=== PATIENT | female | born 1995 | race Caucasian/White ===

== ENCOUNTER 2016-07-05 12:15 | Emergency (ER) | payer MEDICAID ==
[2016-07-05 12:53] VITALS: BP 113/71
[2016-07-05 16:55] LABS: Basophils % (Auto) 0.3 % (0.0-1.8); Hematocrit 39.2 % (30.3-42.9); Hemoglobin 12.6 gm/dl (10.1-14.3); Mean Corpuscular HGB Conc 32 % (30-34); Mean Corpuscular Hemoglobin 26 pg (28-32); Mean Corpuscular Volume 82 fl (79-97); Platelet Count 259 K/mm3 (140-440); Red Blood Count 4.79 M/mm3 (3.65-5.03); Red Cell Distribution Width 12.8 % (13.2-15.2); White Blood Count 10.3 K/mm3 (4.5-11.0)
[2016-07-05] MEDS ORDERED: NACL 0.9% 1000 ML 1,000 ML IV ONE (17:09)
[2016-07-05] MEDS ORDERED: TYLENOL PO ONE (17:09)
[2016-07-05 17:10] LABS: Bilirubin,Urine NEG (Negative); Blood,Urine NEG (Negative); Ketones,Urine NEG (Negative); Leukocyte Esterase,Urine NEG (Negative); Mucus,Urine 3+ /HPF; Nitrite,Urine NEG (Negative); Urobilinogen,Urine < 2.0 mg/dL (<2.0)
--- NOTE | 2016-07-05 17:10 | Emergency Department Report ---
HPI - General Chief Complaint: Nausea/Vomiting/Diarrhea Time Seen by Provider: 07/05/16 16:29 - HPI HPI: The patient is a 21-year-old female presents for evaluation of fever and ill feeling. The patient reports approximately 24 hours of fever, chills, non- productive cough, nauea, a few episodes of nonbilious, nonbloody emesis, 2-3 episodes of loose watery stools, and mild to moderate epigastric abdominal pain , cramping in quality, radiating to the back. She shares that one of her children experienced fever, vomiting, and cold-like symptoms during the past 2 days as well. The patient denies chest pain, dyspnea, hemoptysis, neck pain or stiffness, dysuria, vaginal discharge, blood in the stool, dark tarry stool, flank pain, inability to pass flatus. ED Past Medical Hx - Past Medical History Hx Hypertension: No Hx Congestive Heart Failure: No Hx Diabetes: No Hx Deep Vein Thrombosis: No Hx Renal Disease: No Hx Sickle Cell Disease: No Hx Seizures: No Hx Asthma: Yes Hx COPD: No Hx HIV: No - Surgical History Past Surgical History?: No - Social History Smoking Status: Never Smoker Substance Use Type: None - Medications Home Medications: Home Medications Medication Instructions Recorded Confirmed Last Taken Type Azithromycin [Zithromax Z-ANATOLIY] 250 mg PO QDAY #6 tablet 07/05/16 Unknown Rx HYDROcodone/APAP 5-325 [[place] 1 each PO Q6HR PRN #15 tablet 07/05/16 Unknown Rx 5/325] Ibuprofen [Motrin] 400 mg PO Q6H #30 tablet 07/05/16 Unknown Rx Ondansetron [Zofran TAB] 4 mg PO Q8HR PRN #20 tablet 07/05/16 Unknown Rx ED Review of Systems ROS: Stated complaint: DIARRHEA AND VOMITING Other details as noted in HPI Constitutional: denies: fever ENT: denies: throat or neck pain Respiratory: denies: cough, shortness of breath Cardiovascular: denies: chest pain Endocrine: denies unexplained weight loss or gain Gastrointestinal: reports abdominal pain, nausea Genitourinary: denies: dysuria Musculoskeletal: denies: leg swelling Skin: denies: rash Neurological: denies: headache Hematological/Lymphatic: denies: easy bleeding or easy bruising Psych: denies sadness or hopelessness Physical Exam - Physical Exam Vital Signs: Vital Signs 07/05/16 12:50 Temperature 100.3 F H Pulse Rate 118 H Respiratory 20 Rate Blood Pressure 113/71 O2 Sat by Pulse 100 Oximetry Physical Exam: General: well-nourished, well-developed, no acute distress Head: Normocephalic, atraumatic Eyes: normal sclera ENT: Mucous membranes are pink and moist Neck: trachea midline, neck supple, No neck stiffness, no cervical adenopathy Respiratory: Breath sounds equal bilaterally, no wheezing, rales, or rhonchi Cardio: S1 and S2 present, no murmurs, rubs, gallops, capillary refill is brisk Abdomen: Normoactive bowel sounds, soft abdomen, bilateral lower abd tenderness to palpation present, no rigidity, no guarding or rebound tenderness Musc: No pitting edema Skin: No rash Neuro: no facial drooping, normal speech Psych: Normal affect ED Course Vital Signs 07/05/16 12:50 Temperature 100.3 F H Pulse Rate 118 H Respiratory 20 Rate Blood Pressure 113/71 O2 Sat by Pulse 100 Oximetry ED Medical Decision Making - Lab Data Result diagrams: 07/05/16 16:41 07/05/16 16:41 - Medical Decision Making The patient was seen and examined by myself. The patient is placed on a architecture consultant and continuous pulse ox. On initial evaluation, the patient was found to be in no distress. Evaluation orders are placed. The patient is given a tablet of Tylenol for her fever and pain. She is given a 1 L normal saline fluid bolus for treatment of dehydration. She declined nausea medicine at this time. Lab results revealed elevated urine specific gravity, consistent with exam findings of dehydration, and otherwise labs were non-concerning including WBC, hemoglobin, hematocrit, electrolytes, renal function, LFTs, lipase, and neg preg test. The patient was reevaluated and reported that her symptoms were markedly improved. On reexamination she is found to have decrease in heart rate to 102, and resolution of abdominal tenderness. The patient is stable for discharge with outpatient follow-up. The patient is given follow-up and return instructions. The patient expressed understanding and agreed with the plan. The patient is discharged in stable condition. Critical care attestation.: If time is entered above; I have spent that time in minutes in the direct care of this critically ill patient, excluding procedure time. ED Disposition Clinical Impression: Dehydration, Abdominal pain, acute, epigastric, Acute viral syndrome Fever Qualifiers: Fever type: unspecified Qualified Code(s): R50.9 - Fever, unspecified Disposition: DISCHARGED TO HOME OR SELFCARE Is pt being admited?: No Does the pt Need Aspirin: No Condition: Stable Instructions: Gastroenteritis (ED), Acute Abdominal Pain (ED), Viral Syndrome ( ED), Abdominal Pain (ED), Dehydration (ED) Additional Instructions: Drink lots of water and poweraide or gatorade to stay hydrated. Take the motrin every 6 hours to keep your fever down. Take the zofran to stop urine nausea and vomiting. Take the [place] as needed for pain control. Prescriptions: Ibuprofen [Motrin] 400 mg PO Q6H #30 tablet HYDROcodone/APAP 5-325 [[place] 5/325] 1 each PO Q6HR PRN #15 tablet PRN Reason: Pain Azithromycin [Zithromax Z-ANATOLIY] 250 mg PO QDAY #6 tablet Ondansetron [Zofran TAB] 4 mg PO Q8HR PRN #20 tablet PRN Reason: Nausea And Vomiting Referrals: PRIMARY CARE,MD [Primary Care Provider] - 3-5 Days [facility] [Outside] - 3-5 Days [facility] [Outside] - 3-5 Days Time of Disposition: 17:36 Print Language: CROATIAN
[2016-07-05 17:14] LABS: Alanine Aminotransferase 55 units/L (7-56); Albumin 3.6 g/dL (3.9-5); Albumin/Globulin Ratio 1.2 %; Alkaline Phosphatase 103 units/L (35-129); Anion Gap 19 mmol/L; BUN/Creatinine Ratio 11.25; Bilirubin,Total 0.2 mg/dL (0.1-1.2); Blood Urea Nitrogen 9 mg/dL (7-17); Calcium 8.7 mg/dL (8.4-10.2); Carbon Dioxide 20 mmol/L (22-30); Chloride 99.5 mmol/L (98-107); Glucose 99 mg/dL (65-100); Lipase 25 units/L (13-60); Potassium 3.9 mmol/L (3.6-5.0); Sodium 135 mmol/L (137-145); Total Protein 6.7 g/dL (6.3-8.2)
== END 2016-07-05 18:49 | disposition home or self-care (01) ==
LOC: ED 12:15
DX: E86.0 Dehydration (principal); R10.13 Epigastric pain; B34.9 Viral infection, unspecified; R50.9 Fever, unspecified; J45.909 Unspecified asthma, uncomplicated
CPT/HCPCS: 36415; 80053; 81001; 83690; 84703; 85025; 96360; 99284; J7030

== ENCOUNTER 2017-06-04 15:07 | Emergency (ER) | payer MEDICAID ==
[2017-06-04 15:51] LABS: Basophils % (Auto) 0.3 % (0.0-1.8); Eosinophils % (Auto) 0.1 % (0.0-4.3); Hematocrit 44.2 % (30.3-42.9); Hemoglobin 14.1 gm/dl (10.1-14.3); Mean Corpuscular HGB Conc 32 % (30-34); Mean Corpuscular Volume 81 fl (79-97); Platelet Count 303 K/mm3 (140-440); Red Blood Count 5.43 M/mm3 (3.65-5.03); Red Cell Distribution Width 13.5 % (13.2-15.2); White Blood Count 16.5 K/mm3 (4.5-11.0)
[2017-06-04 15:52] LABS: Mean Corpuscular Hemoglobin 26 pg (28-32)
[2017-06-04 16:11] LABS: Anion Gap 21 mmol/L; BUN/Creatinine Ratio 21; Blood Urea Nitrogen 17 mg/dL (7-17); Calcium 8.7 mg/dL (8.4-10.2); Carbon Dioxide 22 mmol/L (22-30); Chloride 101.3 mmol/L (98-107); Glucose 117 mg/dL (65-100); Potassium 3.6 mmol/L (3.6-5.0); Sodium 141 mmol/L (137-145)
[2017-06-04 16:19] LABS: Bilirubin,Urine NEG (Negative); Blood,Urine NEG (Negative); Ketones,Urine NEG (Negative); Leukocyte Esterase,Urine NEG (Negative); Mucus,Urine 3+ /HPF; Nitrite,Urine NEG (Negative); Urobilinogen,Urine < 2.0 mg/dL (<2.0)
[2017-06-04] MEDS ORDERED: NACL 0.9% 1000 ML 1,000 ML IV ONE ×2 (22:24)
[2017-06-04] MEDS ORDERED: ZOFRAN IV ONE (22:24)
[2017-06-04] MEDS ORDERED: PEPCID IV ONE (22:33)
--- NOTE | 2017-06-04 22:41 | Emergency Department Report ---
HPI - General Chief Complaint: Nausea/Vomiting/Diarrhea Time Seen by Provider: 06/04/17 22:23 - HPI HPI: Room 2 The patient is a 21-year-old female presenting with a chief complaint of nausea vomiting and diarrhea. The patient states there were 3 or 4 people in her home had nausea vomiting and diarrhea. The patient states last night at approximately 20:00 she developed nausea vomiting and diarrhea in addition to burning midepigastric abdominal discomfort and low back pain. She denies fever but admits to chills. The patient states her last meal before the onset of her symptoms included chicken soup from a box Location: Gastrointestinal system Duration: Constant since 20:00 Quality: Burning Severity: Moderate Modifying factors: [see above] Context: [see above] Mode of transportation: [not driving] ED Past Medical Hx - Past Medical History Previous Medical History?: Yes Hx Asthma: Yes - Surgical History Past Surgical History?: No - Family History Family history: no significant - Social History Smoking Status: Never Smoker Substance Use Type: None (denies illicit drug use) - Medications Home Medications: Home Medications Medication Instructions Recorded Confirmed Last Taken Type Azithromycin [Zithromax Z-ANATOLIY] 250 mg PO QDAY #6 tablet 07/05/16 Unknown Rx HYDROcodone/APAP 5-325 [[place] 1 each PO Q6HR PRN #15 tablet 07/05/16 Unknown Rx 5/325] Ibuprofen [Motrin] 400 mg PO Q6H #30 tablet 07/05/16 Unknown Rx Ondansetron [Zofran TAB] 4 mg PO Q8HR PRN #20 tablet 07/05/16 Unknown Rx Famotidine [Pepcid] 20 mg PO BID #20 tablet 06/04/17 Unknown Rx Promethazine [Phenergan TAB] 25 mg PO Q6HR PRN #20 tab 06/04/17 Unknown Rx Promethazine [Phenergan] 25 mg [place] Q6HR PRN #5 supp.rect 06/04/17 Unknown Rx traMADol [Ultram] 50 mg PO Q6HR PRN #20 tablet 06/04/17 Unknown Rx ED Review of Systems ROS: Stated complaint: NVD Other details as noted in HPI Constitutional: chills. denies: fever Eyes: denies: eye pain ENT: denies: throat pain Cardiovascular: denies: chest pain Gastrointestinal: abdominal pain, nausea, vomiting, diarrhea Genitourinary: denies: dysuria Musculoskeletal: back pain Neurological: denies: headache Physical Exam - Physical Exam Vital Signs: Vital Signs 06/04/17 06/04/17 15:12 16:23 Temperature 98.2 F 98.9 F Pulse Rate 114 H 107 H Respiratory 18 18 Rate Blood Pressure 89/51 Blood Pressure 104/68 [Right] O2 Sat by Pulse 100 Oximetry Physical Exam: GENERAL: The patient is well-developed well-nourished female lying on stretcher not appearing to be in acute distress. [] HEENT: Normocephalic. Atraumatic. Extraocular motions are intact. NECK: Supple. No meningitic signs are noted. There is no adenopathy noted. CHEST/LUNGS: Clear to auscultation. There is no respiratory distress noted. HEART/CARDIOVASCULAR: Regular. There is no tachycardia. There is no gallop rub or murmur. ABDOMEN: Abdomen is soft, with only trace discomfort to palpation in the midepigastric region. Patient has normal bowel sounds. There is no abdominal distention. SKIN: There is no rash. There is no edema. There is no diaphoresis. NEURO: The patient is awake, alert, and oriented. The patient is cooperative. The patient has normal speech MUSCULOSKELETAL: There is no CVA tenderness. There is no evidence of acute injury. ED Course Vital Signs 06/04/17 06/04/17 15:12 16:23 Temperature 98.2 F 98.9 F Pulse Rate 114 H 107 H Respiratory 18 18 Rate Blood Pressure 89/51 Blood Pressure 104/68 [Right] O2 Sat by Pulse 100 Oximetry - Reevaluation(s) Reevaluation #1: 06/04/17 23:44 Patient states she feels better. Patient asymptomatic. Patient tolerating po ED Medical Decision Making - Lab Data Result diagrams: 06/04/17 15:42 06/04/17 15:38 Laboratory Tests 06/04/17 06/04/17 06/04/17 15:38 15:42 16:00 WBC 16.5 H RBC 5.43 H Hgb 14.1 Hct 44.2 H MCV 81 MCH 26 L MCHC 32 RDW 13.5 Plt Count 303 Lymph % (Auto) 6.1 L [place] % (Auto) 4.2 Eos % (Auto) 0.1 Baso % (Auto) 0.3 Lymph # 1.0 L [place] # 0.7 Eos # 0.0 Baso # 0.0 Seg Neutrophils % 89.3 H Seg Neutrophils # 14.7 H Sodium 141 Potassium 3.6 Chloride 101.3 Carbon Dioxide 22 Anion Gap 21 BUN 17 Creatinine 0.8 Estimated GFR > 60 BUN/Creatinine Ratio 21 Glucose 117 H Calcium 8.7 Urine Color Yellow Urine Turbidity Clear Urine pH 5.0 Ur Specific [place] 1.035 H Urine Protein 30 mg/dl Urine Glucose (UA) Neg Urine Ketones Neg Urine Blood Neg Urine Nitrite Neg Ur Reducing Substances Not Reportable Urine Bilirubin Neg Urine Ictotest Not Reportable Urine Urobilinogen < 2.0 Ur Leukocyte Esterase Neg Urine WBC (Auto) 1.0 Urine RBC (Auto) 3.0 U Epithel Cells (Auto) 1.0 Urine Mucus 3+ Urine HCG, Qual Negative Laboratory Tests 06/04/17 06/04/17 06/04/17 15:38 15:42 16:00 WBC 16.5 H RBC 5.43 H Hgb 14.1 Hct 44.2 H MCV 81 MCH 26 L MCHC 32 RDW 13.5 Plt Count 303 Lymph % (Auto) 6.1 L [place] % (Auto) 4.2 Eos % (Auto) 0.1 Baso % (Auto) 0.3 Lymph # 1.0 L [place] # 0.7 Eos # 0.0 Baso # 0.0 Seg Neutrophils % 89.3 H Seg Neutrophils # 14.7 H Sodium 141 Potassium 3.6 Chloride 101.3 Carbon Dioxide 22 Anion Gap 21 BUN 17 Creatinine 0.8 Estimated GFR > 60 BUN/Creatinine Ratio 21 Glucose 117 H Calcium 8.7 Total Bilirubin Direct Bilirubin Indirect Bilirubin AST ALT Alkaline Phosphatase Total Protein Albumin Albumin/Globulin Ratio Lipase Urine Color Yellow Urine Turbidity Clear Urine pH 5.0 Ur Specific [place] 1.035 H Urine Protein 30 mg/dl Urine Glucose (UA) Neg Urine Ketones Neg Urine Blood Neg Urine Nitrite Neg Ur Reducing Substances Not Reportable Urine Bilirubin Neg Urine Ictotest Not Reportable Urine Urobilinogen < 2.0 Ur Leukocyte Esterase Neg Urine WBC (Auto) 1.0 Urine RBC (Auto) 3.0 U Epithel Cells (Auto) 1.0 Urine Mucus 3+ Urine HCG, Qual Negative 06/04/17 22:33 WBC RBC Hgb Hct MCV MCH MCHC RDW Plt Count Lymph % (Auto) [place] % (Auto) Eos % (Auto) Baso % (Auto) Lymph # [place] # Eos # Baso # Seg Neutrophils % Seg Neutrophils # Sodium Potassium Chloride Carbon Dioxide Anion Gap BUN Creatinine Estimated GFR BUN/Creatinine Ratio Glucose Calcium Total Bilirubin 0.90 Direct Bilirubin < 0.2 Indirect Bilirubin 0.7 AST 22 ALT 28 Alkaline Phosphatase 67 Total Protein 7.3 Albumin 4.3 Albumin/Globulin Ratio 1.4 Lipase 22 Urine Color Urine Turbidity Urine pH Ur Specific [place] Urine Protein Urine Glucose (UA) Urine Ketones Urine Blood Urine Nitrite Ur Reducing Substances Urine Bilirubin Urine Ictotest Urine Urobilinogen Ur Leukocyte Esterase Urine WBC (Auto) Urine RBC (Auto) U Epithel Cells (Auto) Urine Mucus Urine HCG, Qual - Medical Decision Making I discussed the patient's proteinuria with her and advised follow-up with a plate setter and/or her primary physician - Differential Diagnosis gastroenteritis, pancreatitis, cholelithiasis Critical care attestation.: If time is entered above; I have spent that time in minutes in the direct care of this critically ill patient, excluding procedure time. ED Disposition Clinical Impression: Nausea vomiting and diarrhea, Proteinuria Disposition: TO HOME OR SELFCARE Is pt being admited?: No Does the pt Need Aspirin: No Condition: Stable Instructions: Gastroenteritis (ED), Acute Nausea and Vomiting (ED) Additional Instructions: Return to the emergency department immediately should you develop worsening symptoms, fever, inability to tolerate food or liquid or any other concerns. Prescriptions: Famotidine [Pepcid] 20 mg PO BID #20 tablet Promethazine [Phenergan TAB] 25 mg PO Q6HR PRN #20 tab PRN Reason: Nausea Promethazine [Phenergan] 25 mg [place] Q6HR PRN #5 supp.rect PRN Reason: Vomiting traMADol [Ultram] 50 mg PO Q6HR PRN #20 tablet PRN Reason: Pain Referrals: PRIMARY CARE, [Primary Care Provider] - 3-5 Days SANTINO MURCIA MD [Staff Physician] - 3-5 Days (Dr. Murcia was a copy manager. Please follow up with him for further evaluation) SAMPSON ALVARADO MD [Staff Physician] - 3-5 Days (Dr. Alvarado is a plate setter. Please follow up with him for further evaluation of the protein in your urine) Time of Disposition: 23:47
[2017-06-04 22:54] LABS: Alanine Aminotransferase 28 units/L (7-56); Albumin 4.3 g/dL (3.9-5); Albumin/Globulin Ratio 1.4 %; Alkaline Phosphatase 67 units/L (35-129); Bilirubin,Direct < 0.2 mg/dL (0-0.2); Bilirubin,Indirect 0.7 mg/dL; Lipase 22 units/L (13-60); Total Protein 7.3 g/dL (6.3-8.2)
[2017-06-05 01:21] VITALS: BP 103/55
== END 2017-06-05 00:15 | disposition home or self-care (01) ==
LOC: ED 15:07
DX: R11.2 Nausea with vomiting, unspecified (principal); R19.7 Diarrhea, unspecified; R80.9 Proteinuria, unspecified; J45.909 Unspecified asthma, uncomplicated; Z88.0 Allergy status to penicillin
CPT/HCPCS: 36415; 80048; 80074; 81001; 81025; 83690; 85025; 96361; 96374; 96375; 99283; J2405; J7030

== ENCOUNTER 2018-08-05 20:19 | Emergency (ER) | payer MEDICAID ==
[2018-08-05 20:39] VITALS: BP 133/79
[2018-08-05] MEDS ORDERED: NACL 0.9% 1000 ML 1,000 ML IV ONE (20:39)
[2018-08-05 21:12] LABS: Basophils # (Auto) 0.1 K/mm3 (0.0-0.1); Basophils % (Auto) 0.3 % (0.0-1.8); Eosinophils # (Auto) 0.3 K/mm3 (0.0-0.4); Eosinophils % (Auto) 1.7 % (0.0-4.3); Hemoglobin 13.5 gm/dl (10.1-14.3); Lymphocytes # (Auto) 2.6 K/mm3 (1.2-5.4); Lymphocytes % (Auto) 13.2 % (13.4-35.0); Mean Corpuscular HGB Conc 32 % (30-34); Mean Corpuscular Volume 82 fl (79-97); Monocytes # (Auto) 1.4 K/mm3 (0.0-0.8); Monocytes % (Auto) 7.2 % (0.0-7.3); Platelet Count 330 K/mm3 (140-440); Red Blood Count 5.12 M/mm3 (3.65-5.03); Red Cell Distribution Width 13.2 % (13.2-15.2)
[2018-08-05 21:14] LABS: Bilirubin,Urine NEG (Negative); Blood,Urine NEG (Negative); Color,Urine Yellow (Yellow); Mucus,Urine FEW /HPF; Protein,Urine <15 mg/dL mg/dL (Negative); RBC,Urine < 1.0 /HPF (0.0-6.0); Urobilinogen,Urine < 2.0 mg/dL (<2.0); WBC,Urine < 1.0 /HPF (0.0-6.0)
[2018-08-05 21:28] LABS: Alanine Aminotransferase 26 units/L (7-56); Albumin 4.5 g/dL (3.9-5); BUN/Creatinine Ratio 15; Blood Urea Nitrogen 12 mg/dL (7-17); Calcium 9.6 mg/dL (8.4-10.2); Hemolysis Index 8
--- NOTE | 2018-08-06 00:37 | Emergency Department Report ---
ED N/V/D HPI - General Chief complaint: Nausea/Vomiting/Diarrhea Stated complaint: N/V Time Seen by Provider: 08/06/18 00:01 Source: patient Mode of arrival: Ambulatory Limitations: No Limitations - History of Present Illness Initial comments: 23-year-old female presents to the emergency room complaining of nausea vomiting with some diarrhea and abdominal pain. Patient reports abdominal pain is located at the periUmbilicus area it comes and goes. Nothing makes it better and nothing makes it worse. Patient stated that it started on Monday and by Monday she had abdominal discomfort and nausea today she's had nausea and vomiting. She reports that the pain is crampy. She complains of being weak. She has a past medical history of asthma she reports her primary care doctor is Dr. Luna. She takes no medications on a daily basis has allergy to penicillin. MD complaint: nausea, vomiting, diarrhea, abdominal pain -: week(s) (1) - Related Data Previous Rx's Medication Instructions Recorded Last Taken Type Azithromycin [Zithromax Z-ANATOLIY] 250 mg PO QDAY #6 tablet 07/05/16 Unknown Rx HYDROcodone/APAP 5-325 [[place] 1 each PO Q6HR PRN #15 tablet 07/05/16 Unknown Rx 5/325] Ibuprofen [Motrin] 400 mg PO Q6H #30 tablet 07/05/16 Unknown Rx Ondansetron [Zofran TAB] 4 mg PO Q8HR PRN #20 tablet 07/05/16 Unknown Rx Famotidine [Pepcid] 20 mg PO BID #20 tablet 06/04/17 Unknown Rx Promethazine [Phenergan TAB] 25 mg PO Q6HR PRN #20 tab 06/04/17 Unknown Rx Promethazine [Phenergan] 25 mg [place] Q6HR PRN #5 supp.rect 06/04/17 Unknown Rx traMADol [Ultram] 50 mg PO Q6HR PRN #20 tablet 06/04/17 Unknown Rx Ondansetron [Zofran Odt] 4 mg PO Q8HR #12 tab.rapdis 08/06/18 Unknown Rx Allergies Allergy/AdvReac Type Severity Reaction Status Date / Time Penicillins Allergy Severe Shortness Verified 06/04/17 15:11 of Breath ED Review of Systems ROS: Stated complaint: N/V Other details as noted in HPI ED Past Medical Hx - Past Medical History Hx Hypertension: No Hx Congestive Heart Failure: No Hx Diabetes: No Hx Deep Vein Thrombosis: No Hx Renal Disease: No Hx Sickle Cell Disease: No Hx Seizures: No Hx Asthma: Yes Hx COPD: No Hx HIV: No - Surgical History Past Surgical History?: No - Social History Smoking Status: Never Smoker Substance Use Type: None - Medications Home Medications: Home Medications Medication Instructions Recorded Confirmed Last Taken Type Azithromycin [Zithromax Z-ANATOLIY] 250 mg PO QDAY #6 tablet 07/05/16 Unknown Rx HYDROcodone/APAP 5-325 [[place] 1 each PO Q6HR PRN #15 tablet 07/05/16 Unknown Rx 5/325] Ibuprofen [Motrin] 400 mg PO Q6H #30 tablet 07/05/16 Unknown Rx Ondansetron [Zofran TAB] 4 mg PO Q8HR PRN #20 tablet 07/05/16 Unknown Rx Famotidine [Pepcid] 20 mg PO BID #20 tablet 06/04/17 Unknown Rx Promethazine [Phenergan TAB] 25 mg PO Q6HR PRN #20 tab 06/04/17 Unknown Rx Promethazine [Phenergan] 25 mg [place] Q6HR PRN #5 supp.rect 06/04/17 Unknown Rx traMADol [Ultram] 50 mg PO Q6HR PRN #20 tablet 06/04/17 Unknown Rx Ondansetron [Zofran Odt] 4 mg PO Q8HR #12 tab.rapdis 08/06/18 Unknown Rx ED Physical Exam - General Limitations: No Limitations - Head Head exam: Present: atraumatic, normocephalic - Eye Eye exam: Present: EOMI - ENT ENT exam: Present: mucous membranes moist - Neck Neck exam: Present: normal inspection - Respiratory Respiratory exam: Present: normal lung sounds bilaterally. Absent: respiratory distress - Cardiovascular Cardiovascular Exam: Present: regular rate, normal rhythm. Absent: systolic murmur, diastolic murmur, rubs, gallop - GI/Abdominal GI/Abdominal exam: Present: soft, tenderness. Absent: distended - Extremities Exam Extremities exam: Present: normal inspection - Back Exam Back exam: Present: normal inspection - Neurological Exam Neurological exam: Present: alert, oriented X3 - Psychiatric Psychiatric exam: Present: normal affect, normal mood - Skin Skin exam: Present: warm, dry, intact, normal color. Absent: rash ED Course Vital Signs 08/05/18 08/06/18 20:35 02:58 Temperature 98.1 F 98.1 F Pulse Rate 97 H 97 H Respiratory 18 18 Rate Blood Pressure 133/79 O2 Sat by Pulse 100 100 Oximetry ED Medical Decision Making - Lab Data Result diagrams: 08/05/18 20:53 08/05/18 20:53 - Radiology Data Radiology results: report reviewed Patient: MER CLARK MR#: [id number] : 1995 Acct:[id number] Age/Sex: 23 / F ADM Date: 08/05/18 Loc: ED Attending Dr: Ordering Physician: DICK ANDUJAR Date of Service: 08/06/18 Procedure(s): CT abdomen pelvis w con Accession Number(s): [id number] cc: DICK ANDUJAR FINAL REPORT PROCEDURE: CT ABDOMEN PELVIS W CON TECHNIQUE: Computerized axial tomography of the abdomen and pelvis was performed after the IV injection of iodinated nonionic contrast. HISTORY: periumblicus with elevated wbcs COMPARISON: No prior studies are available for comparison. FINDINGS: Visualized lower thorax: No significant abnormality. Liver: Normal size and attenuation. Spleen: Normal size and attenuation. Gallbladder and biliary system: Normal. Pancreas: Normal. Adrenals: Normal. Kidneys: Normal. GI tract: The stomach is normal. The small bowel has a normal caliber. No obstruction is seen. Cecum, appendix and colon are normal.. Lymph nodes and mesentery: Normal. Vasculature: Normal. Bladder: Normal. Reproductive organs: The uterus is retroverted. There is an intrauterine device within the uterus. There is 2 centimeter cyst on left ovary.. Peritoneum: No free fluid. Musculoskeletal structures: No significant abnormality. Other: None. IMPRESSION: There is no evidence of intestinal or urinary tract obstruction. No ileus or enteritis. Appendix is normal. The uterus is retroverted, an IUD is identified. There is a 2 centimeter cyst on the left ovary. Transcribed By: [facility] Dictated By: DENA BAKER MD Electronically Authenticated By: DENA BAKER MD Signed Date/Time: 08/06/18158 DD/ 6 TD/TT: 08/06/18156 - Medical Decision Making Patient has been evaluated by this provider in fast track. CBC CMP ua and lipase ordered. CBC shows elevated WBCs CT of abdomen shows no abnormalities except IUD. Patient received IV fluids Patient be discharged home in stable condition. Critical care attestation.: If time is entered above; I have spent that time in minutes in the direct care of this critically ill patient, excluding procedure time. ED Disposition Clinical Impression: Nausea vomiting and diarrhea Elevated white blood cell count, unspecified Qualifiers: Leukocytosis type: unspecified Qualified Code(s): D72.829 - Elevated white blood cell count, unspecified Disposition: DC-01 TO HOME OR SELFCARE Is pt being admited?: No Does the pt Need Aspirin: No Condition: Stable Instructions: Acute Nausea and Vomiting (ED), Abdominal Pain (ED) Additional Instructions: Please increase her fluid intake and advance her diet as tolerated and follow up with Dr. Luna if her symptoms persist or gets worse. Please take Zofran as needed for nausea and vomiting. Prescriptions: Ondansetron [Zofran Odt] 4 mg PO Q8HR #12 tab.rapdis Referrals: SHIN LUNA MD [Primary Care Provider] - 3-5 Days Forms: Accompanied Note, Work/School Release Form(ED)
--- NOTE | 2018-08-06 01:59 | Cat Scan Report ---
FINAL REPORT PROCEDURE: CT ABDOMEN PELVIS W CON TECHNIQUE: Computerized axial tomography of the abdomen and pelvis was performed after the IV inject ion of iodinated nonionic contrast. HISTORY: periumblicus with elevated wbcs COMPARISON: No prior studies are available for comparison. FINDINGS: Visualized lower thorax: No significant abnormality. Liver: Normal size and attenuation. Spleen: Normal size and attenuation. Gallbladder and biliary system: Normal. Pancreas: Normal. Adrenals: Normal. Kidneys: Normal. GI tract: The stomach is normal. The small bowel has a normal caliber. No obstruction is seen. Cecum, appendix and colon are normal.. Lymph nodes and mesentery: Normal. Vasculature: Normal. Bladder: Normal. Reproductive organs: The uterus is retroverted. There is an intrauterine device within the uterus. Th ere is 2 centimeter cyst on left ovary.. Peritoneum: No free fluid. Musculoskeletal structures: No significant abnormality. Other: None. IMPRESSION: There is no evidence of intestinal or urinary tract obstruction. No ileus or enteritis. Appendix is n ormal. The uterus is retroverted, an IUD is identified. There is a 2 centimeter cyst on the left ovary.
== END 2018-08-06 02:59 | disposition home or self-care (01) ==
LOC: ED 20:19
DX: R11.2 Nausea with vomiting, unspecified (principal); R19.7 Diarrhea, unspecified; D72.829 Elevated white blood cell count, unspecified; J45.909 Unspecified asthma, uncomplicated; Z88.0 Allergy status to penicillin
CPT/HCPCS: 36415; 74177; 80053; 81001; 83690; 84703; 85025; 99284; J7030; Q9967